=== PATIENT | male | born 1970 | race Caucasian/White ===

== ENCOUNTER 2021-03-13 10:57 | Emergency (ER) | payer OTHER, SELFPAY ==
--- NOTE | ~2021-03-13 | CT_ITS ---
EXAMINATION: CT abdomen pelvis wo con DATE: 03/13/2021 11:58 INDICATION: Right-sided flank pain TECHNIQUE: Computed tomography (CT) of the abdomen and pelvis was performed without intravenous contr ast. Automated exposure control and iterative reconstruction technique were employed. The dose-length product was 839.89 mGy-cm. COMPARISON: None FINDINGS: A few small pleural-based nodules measuring 4 mm in the right lower lobe, 3 mm in the right middle lo be and 2 mm at the lingula. Mild interstitial pattern with a few tree-in-bud opacities in the periphe ral right middle lobe. Heart size is normal. No pericardial or pleural effusion. Small sliding-type h iatal hernia. Liver, gallbladder, spleen, pancreas and bilateral adrenal glands are normal. There is mild colonic diverticulosis with a descending and sigmoid predominance but without adjacent inflammat ory change to suggest diverticulitis. Small bowel and appendix are normal. A few low-attenuation alecia l cysts measuring up to 1.8 cm in both the left and right kidneys. There is a larger 2.9 cm exophytic lesion at the lower pole of the right kidney with slightly greater than simple fluid attenuation mos t likely proteinaceous/hemorrhagic cyst although solid neoplasm cannot be absolutely excluded. Bilate ral nephrolithiasis with 5 stones in the left kidney measuring up to 4 mm and 4 stones measuring up t o 2 mm in the right kidney. There is mild right hydroureteronephrosis extending to a 3 mm stone in th e mid right ureter. Positioned near the level of the lateral margin of the L4-L5 disc space. Bladder is normal. Mild prostatomegaly measuring 4.6 x 5 3.9 cm. No free intraperitoneal gas or fluid. No pat hologically enlarged abdominal or pelvic lymphadenopathy. 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 IMPRESSION: 1. Bilateral nephrolithiasis with obstructing 3 mm mid right ureteral stone resulting in mild right h ydroureteronephrosis. 2. Indeterminate 2.9 cm exophytic lesion at the lower pole of the right kidney most likely proteinace ous/hemorrhagic cyst although solid neoplasm cannot be absolute excluded. Would recommend additional imaging for further evaluation. Ultrasound would likely be diagnostic of the pre and postcontrast CT or MRI could also be obtained. 3. Mild peripheral interstitial pattern in the right middle lobe with a few tiny centrilobular nodule s with tree-in-bud pattern. Differential would include age-indeterminate infection/inflammatory proce ss, more chronic interstitial lung disease or less likely mild pulmonary edema. Reviewed, dictated and finalized at location B. IMPRESSION: 1. Bilateral nephrolithiasis with obstructing 3 mm mid right ureteral stone res ulting in mild right hydroureteronephrosis. 2. Indeterminate 2.9 cm exophytic lesion at the lower pole of the right kidney most likely proteinaceous/hemorrhagic cyst although solid neoplasm cannot be ab solute excluded. Would recommend additional imaging for further evaluation. Ult rasound would likely be diagnostic of the pre and postcontrast CT or MRI could also be obtained. 3. Mild peripheral interstitial pattern in the right middle lobe with a few tin y centrilobular nodules with tree-in-bud pattern. Differential would include ag e-indeterminate infection/inflammatory process, more chronic interstitial lung disease or less likely mild pulmonary edema.
[2021-03-13 11:14] VITALS: BP 140/80; PULSE 64; RESP 16; TEMP 36.6; O2SAT 98
[2021-03-13 11:42] LABS: Basophils Percent Auto 0.3 % (0.2-1.2); Eosinophils Absolute Auto 0.1 K/mm3 (0-0.3); Eosinophils Percent Auto 0.6 % (0-4.4); Hematocrit 46.9 % (42.0-52.0); Immature Granulocyte Absolute 0.05 K/mm3 (0.00-0.031); Immature Granulocyte Percent A 0.4 % (0-0.5); Lymphocytes Absolute Auto 1.52 K/mm3 (0.9-3.2); Lymphocytes Percent Auto 11.2 % (18.3-44.2); Mean Corpuscular HGB Conc 34.1 g/dl (32-36); Mean Corpuscular Hemoglobin 29.8 pg (26-34); Mean Corpuscular Volume 87.3 fl (80-100); Mean Platelet Volume 10.4 fl (7.4-10.4); Monocytes Percent Auto 7.1 % (2.6-8.5); Neutrophils Absolute Auto 10.9 K/mm3 (1.3-6.7); Neutrophils Percent Auto 80.4 % (45.5-73.1); Platelet Count Result 223 k/mm3 (150-375); Red Blood Count 5.37 M/mm3 (4.6-6.20); Red Cell Distribution Width 12.8 % (11.5-14.5); White Blood Count 13.6 K/mm3 (4.5-10.0)
[2021-03-13] MEDS: ONDANSETRON INJ 4 MG/2 ML VIAL (11:43)
[2021-03-13] MEDS: SODIUM CHLORIDE 0.9% IV 1,000 ML 999 ML (11:43)
[2021-03-13] MEDS: MORPHINE SULFATE (*CRX) 4 MG/ML INJ IV PUSH (11:50)
[2021-03-13 13:03] LABS: Potassium 4.7 mmol/L (3.4-5.0)
[2021-03-13 13:10] LABS: Alanine Aminotransferase 24 U/L (4-50); Albumin Level 4.6 g/dL (3.5-5.1); Alkaline Phosphatase 69 U/L (38-126); Anion Gap 7 mmol/L (8-16); Aspartate Amino Transferase 25 U/L (17-59); Bilirubin,Total 0.7 mg/dL (0.2-1.3); Blood Urea Nitrogen 11 mg/dL (9-20); Calcium 8.9 mg/dL (8.4-10.2); Carbon Dioxide 25 mmol/L (22-30); Chloride 107 mmol/L (98-107); Estimated CRCL calculation 80 ml/min; Estimated Glomerular Filt Rate > 60; Glucose 128 mg/dL (65-110); Lipase 49 U/L (23-300); Sodium 139 mmol/L (137-145)
[2021-03-13 13:44] VITALS: BP 139/86; PULSE 89; RESP 16; O2SAT 99
[2021-03-13 13:51] LABS: Add Urine Microscopic? YES; Appearance Urine Clear (Clear); Bilirubin Urine Negative (Negative); Blood Urine 3+ (Negative); Color Urine Yellow (Yellow); Glucose Urine UA Negative (Negative); Ketones Urine 1+ mg/dL (Negative); Leukocyte Esterase Ur Negative LEU/UL (Negative); Mucus Urine Rare /lpf; Nitrate Urine Negative (Negative); Protein Urine 1+ mg/dL (Negative); RBC Urine >75 /hpf (0-2); Specific Grav Ur 1.019 (1.001-1.035); Urobilinogen Urine Negative mg/dL (<2.0); WBC Urine 0-3 /hpf
--- NOTE | 2021-03-13 14:16 | ED.ABDPAIN ---
HPI - Abdominal Pain General Chief Complaint: Abdominal Pain Stated Complaint: abd pain Time Seen by Provider: 03/13/21 11:34 Source: patient and family Mode of arrival: ambulatory Limitations: no limitations History of Present Illness HPI narrative: 50-year-old with no major medical problems here with complaints of right lower abdominal pain started yesterday. Since this morning his pain has been pretty sharp. He denies any fever or chills. No history of nausea or vomiting or blood in the urine. No previous history of kidney stones. MD elicited complaint: abdominal pain Pertinent past history: none Onset (ago): day(s) (1) Pain Consistency: constant Location: RLQ Quality: stabbing and sharp Migration to: R flank Exacerbating factors: nothing Relieving factors: nothing Related Data Allergies Allergy/AdvReac Type Severity Reaction Status Date / Time No Known Allergies Allergy Verified 03/13/21 11:52 Review of Systems Review of Systems: All systems reviewed & are unremarkable except as noted in HPI and below Constitutional: Constitutional: Reports no additional constitutional complaints Eyes: Eyes: Reports no additional eye complaints ENT: Reports system reviewed and no additional complaints, except as documented Cardiovascular: Cardiovascular: Reports no additional cardiovascular complaints Respiratory: Respiratory: Reports no additional respiratory complaints Gastrointestinal: Gastrointestinal: Reports as per HPI Genitourinary: Genitourinary: Reports no additional male genitourinary complaints Musculoskeletal: Musculoskeletal: Reports no additional musculoskeletal complaints Integumentary/Breasts: Skin/Breast: Reports system reviewed and no additional complaints, except as docu Exam Narrative: GENERAL: Well-appearing, well-nourished, and in no acute distress. HEAD: Normocephalic, atraumatic. EYES: PERRLA and EOMI. NECK: Supple. CHEST: Clear to auscultation. No respiratory distress. HEART: Regular rate and rhythm. No murmur heard. Normal peripheral pulses. ABDOMEN: Soft, nontender, nondistended, normal active bowel sounds. EXTREMITIES: Normal range of motion. No edema. SKIN: Warm, dry, no rash. NEURO: No focal deficits. Alert and oriented x3. PSYCH: Normal mood and affect. Course Course Emergency Course: Patient is pain-free after IV morphine. Informed him about his lab work, CT findings. Advised him to take pain medication as prescribed. Also recommended him to follow-up with the urologist about his kidneys . Vital Signs Vital signs: Vital Signs Temperature 36.6 C 03/13/21 11:14 Pulse Rate 64 03/13/21 11:14 Respiratory Rate 16 03/13/21 11:14 Blood Pressure 140/80 03/13/21 11:14 Pulse Oximetry 98 03/13/21 11:14 Temperature 36.6 C 03/13/21 11:14 Pulse Rate 89 03/13/21 13:44 Respiratory Rate 16 03/13/21 13:44 Blood Pressure 139/86 03/13/21 13:44 Pulse Oximetry 99 03/13/21 13:44 MDM - Abdominal Pain Differential Diagnosis Differential diagnosis: Likely abdominal pain, acute appendicitis, calculus of kidney and gastroenteritis Lab Data Result diagrams: 03/13/21 11:22 03/13/21 12:32 Labs: Lab Results 03/13/21 03/13/21 03/13/21 Range/Units 11:22 12:32 13:25 WBC 13.6 H (4.5-10.0) K/mm3 RBC 5.37 (4.6-6.20) M/mm3 Hgb 16.0 (14.0-18.0) g/dL Hct 46.9 (42.0-52.0) % MCV 87.3 (80-100) fl MCH 29.8 (26-34) pg MCHC 34.1 (32-36) g/dl RDW 12.8 (11.5-14.5) % Plt Count 223 (150-375) k/mm3 MPV 10.4 (7.4-10.4) fl Immature Gran % (Auto) 0.4 (0-0.5) % Neut % (Auto) 80.4 H (45.5-73.1) % Lymph % (Auto) 11.2 L (18.3-44.2) % Reagan % (Auto) 7.1 (2.6-8.5) % Eos % (Auto) 0.6 (0-4.4) % Baso % (Auto) 0.3 (0.2-1.2) % Lymph # (Auto) 1.52 (0.9-3.2) K/mm3 Reagan # (Auto) 1.0 H (0.1-0.6) K/mm3 Eos # (Auto) 0.1 (0-0.3) K/mm3 Baso # (Auto) 0.0 (0.0-0.1) K/mm
== END 2021-03-13 14:42 | disposition home or self-care (01) ==
PROVIDERS: Emergency Provider Family Medicine; PCP Internal Medicine
DX: N13.2 Hydronephrosis with renal and ureteral calculous obstruction (principal); N28.9 Disorder of kidney and ureter, unspecified; R91.8 Other nonspecific abnormal finding of lung field
CPT/HCPCS: 36415; 74176; 80053; 81001; 83690; 85025; 96374; 96375; 99284; J2270; J2405; J7030